=== PATIENT | male | born 1940 | race Caucasian/White ===

== ENCOUNTER 2018-05-24 14:58 | Observation (INO) ==
[2018-05-24] MEDS ORDERED: Belladonna Alkaloid/Opium 60 MG Supp RECTAL PRN (19:11)
[2018-05-24] MEDS: Ciprofloxacin 500 MG Tablet PO SCH (21:13)
[2018-05-24] MEDS: Docusate Sodium 100 MG Capsule PO SCH (21:13)
[2018-05-25] MEDS: Ciprofloxacin 500 MG Tablet PO SCH ×2 (08:02→21:00)
[2018-05-25] MEDS: Docusate Sodium 100 MG Capsule PO SCH ×2 (08:02→21:01)
--- NOTE | 2018-05-25 12:31 | P.PNURO ---
Subjective Patient symptoms today: Pt was seen at bedside this afternoon. s/p TURP yesterday. no f/c/n/v, on CBI, urine is light pink. pt has no significant c/o, pain is controlled prn. has pain when espinoza is clogged. no other issues His CBI was slowed down earlier today and urine color bacame darker, later his espinoza got clogged and RN had to irrigate him and flush with fully opened CBI. to remove some clots, one clot was large. Now CBI is running at 2 drops/sec Objective Vital Signs: Vital Signs 05/24/18 16:00 05/24/18 20:00 05/25/18 00:00 Temperature 98.2 F 98.3 F 97.8 F Pulse Rate 71 75 76 Respiratory Rate 19 18 18 Blood Pressure 128/65 135/60 121/68 Pulse Oximetry 93 L 96 97 05/25/18 08:00 Temperature 98.8 F Pulse Rate 80 Respiratory Rate 17 Blood Pressure 130/62 Pulse Oximetry 100 Intake & Output 05/24/18 05/25/18 05/25/18 18:59 06:59 18:59 Intake Total 480 / 480 Balance 480 / 480 Weight 102.512 kg 103.6 kg Intake: Oral 480 / 480 Other: Bladder Irrigation Fluid - Amount Instilled 3-way Urethral 3,000 Bladder Irrigation Fluid - Amount Drained 3-way Urethral 1,100 Weight On Admission 102.512 kg Medications and IVs: Active Medications Generic Name Dose Route Start Last Admin Trade Name Freq PRN Reason Stop Dose Admin Hydrocodone Bitart/Acetaminophen 2 tab 05/24/18 19:08 Thurmond 5/325 PO Q6H PRN PAIN SCALE 5-10/SEVERE COUGH Atorvastatin Calcium 10 mg 05/25/18 09:00 05/25/18 08:01 Lipitor PO 10 mg DAILY FRANCISCO Administration Belladonna Alkaloids/Opium 60 mg 05/24/18 19:11 B & O Supp RECTAL Q6HR PRN bladder spasms Ciprofloxacin HCl 500 mg 05/24/18 21:00 05/25/18 08:02 Cipro PO 500 mg Q12HR FRANCISCO Administration Docusate Sodium 100 mg 05/24/18 21:00 05/25/18 08:02 Colace PO Not Given BID FRANCISCO Objective Remarks: NAD RRR Clear lungs Abd soft NT Espinoza is in place Assessment and Plan - Plan 77y.o m POD #1 s/p TURP yesterday on CBI due to post/op hematuria improving - Continue care as is for now - CBI adjusted to slower rate - Pain control prn - Discussed with RN to try weaning him off CBI again and observe for urine color change - We will keep him overnight and if remains clear without CBI we will d/c home tomorrow Discussed Condition With: DR Miki RAVI attending and pt's RN
[2018-05-26] MEDS: Docusate Sodium 100 MG Capsule PO SCH (08:20)
[2018-05-26] MEDS: Ciprofloxacin 500 MG Tablet PO SCH (08:21)
[2018-05-26 08:34] VITALS: O2SAT 95
--- NOTE | 2018-05-26 12:11 | P.DCO ---
- Diagnosis (1) BPH loc w urin obs/LUTS Status: Acute - Home Health Nursing Order: Wilson catheter maintenance - Case Management Consult No - Certification I have seen patient Emigdio Padilla on 05/26/18. My clinical findings support the need for the requested home health care services because: Deconditioned with increased weakness I certify that my clinical findings support that this patient is homebound because: Post-op weakness
--- NOTE | 2018-05-26 12:12 | P.PNURO ---
Subjective Patient symptoms today: doing well. Denies pain. CBI clamped this morning. No issues. Denies fevers. Had BM. Objective Vital Signs: Vital Signs 05/25/18 16:00 05/25/18 20:00 05/26/18 00:00 Temperature 99.0 F 98.6 F 98.6 F Pulse Rate 97 H 91 H 80 Respiratory Rate 17 17 17 Blood Pressure 121/61 113/58 L 133/62 Pulse Oximetry 94 L 94 L 97 05/26/18 08:00 Temperature 97.9 F Pulse Rate 65 Respiratory Rate 18 Blood Pressure 116/56 L Pulse Oximetry 95 Intake & Output 05/25/18 05/26/18 05/26/18 18:59 06:59 18:59 Intake Total 480 / 480 Output Total 81615 / 45944 Balance -25922 / -85317 480 / 480 Weight 103.6 kg Intake: Oral 480 / 480 Output: Urine Amount (Catheter) 82603 / 91772 3-way Urethral 56347 / 09453 Other: Bladder Irrigation Fluid - Amount Instilled 3-way Urethral 1,600 Bladder Irrigation Fluid - Amount Drained 3-way Urethral 3,725 Date of Last Bowel Movement 05/25/18 05/25/18 # Bowel Movements 1 Medications and IVs: Active Medications Generic Name Dose Route Start Last Admin Trade Name Freq PRN Reason Stop Dose Admin Hydrocodone Bitart/Acetaminophen 2 tab 05/24/18 19:08 05/26/18 06:06 Lohn 5/325 PO 2 tab Q6H PRN Administration PAIN SCALE 5-10/SEVERE COUGH Atorvastatin Calcium 10 mg 05/25/18 09:00 05/26/18 08:20 Lipitor PO 10 mg DAILY FRANCISCO Administration Belladonna Alkaloids/Opium 60 mg 05/24/18 19:11 B & O Supp RECTAL Q6HR PRN bladder spasms Ciprofloxacin HCl 500 mg 05/24/18 21:00 05/26/18 08:21 Cipro PO 500 mg Q12HR FRANCISCO Administration Docusate Sodium 100 mg 05/24/18 21:00 05/26/18 08:20 Colace PO 100 mg BID FRANCISCO Administration Objective Remarks: NAD RRR Clear lungs Abd soft NT Wilson is in place, pink urine, CBI clamped. Assessment and Plan - Assessment (1) BPH loc w urin obs/LUTS Code(s): N40.1 - Benign prostatic hyperplasia with lower urinary tract symptoms Status: Acute - Plan 77y.o m POD #2 s/p TURP -Void trial today. Once he urinates,, can be discharged home -F/U in 7-10 days -Scripts with patient.
[2018-05-26 13:25] VITALS: BP 130/64; PULSE 84; RESP 17; TEMP 97.5
== END 2018-05-26 16:24 | disposition home or self-care (01) ==
LOC: INTOOBSV 15:39 → N07 15:39 → PREOBSVTOIN 05-25 03:20
PROVIDERS: ADMIT Urology; ATTEND Urology
DX: R31.0 Gross hematuria; Z90.79 Acquired absence of other genital organ(s); R53.1 Weakness; N40.1 Benign prostatic hyperplasia with lower urinary tract symptoms; N13.8 Other obstructive and reflux uropathy